=== PATIENT | male | born 1980 | race Caucasian/White ===

== ENCOUNTER → 2019-10-16 12:37 | Outpatient (CLI) | payer BC, SELFPAY ==
--- NOTE | 2019-10-16 | DI.RAD_ITS ---
EXAM: XR THORACIC SPINE COMPLETE CLINICAL HISTORY: CERVICALGIA M54.2UPPER BACK PAIN M54.9. TECHNIQUE: 2D digital imaging was performed. COMPARISON: No exams were available for comparison FINDINGS: BONES: There is no fracture or destructive lesion. The vertebral bodies and posterior elements are un remarkable. DISKS:Alignment is within normal limits. Mild degenerative changes are seen in the thoracic spine johanna racterized by space narrowing and endplate osteophytes. SOFT TISSUE: Visualized lungs are clear. IMPRESSION: Mild degenerative changes in the thoracic spine. DATA REPOSITORY: RADIATION DOSE DELIVERED:
--- NOTE | 2019-10-16 | DI.RAD_ITS ---
EXAM: XR CERVICAL SPINE COMP 4-5V CLINICAL HISTORY: CERVICALGIA M54.2. TECHNIQUE: 2D digital imaging was performed. COMPARISON: No exams were available for comparison FINDINGS: BONES: No fracture or destructive lesion. Vertebral bodies are unremarkable. DISKS: Intervertebral disc spaces are maintained. Mild degenerative changes are seen at C5-6 and C6-C 7. There is mild narrowing of the left neural foramen at C5-C6 and the right neural foramen at C6-C7 . ALIGNMENT: Cervical spinal alignment is within normal limits. The odontoid and atlantoaxial articulat ions are normal. SOFT TISSUE: Normal. The lung apices are clear. IMPRESSION: Mild degenerative changes in the cervical spine. DATA REPOSITORY: RADIATION DOSE DELIVERED:
== END ==
PROVIDERS: Visit Provider Nurse Practitioner
DX: M54.2 Cervicalgia (principal); M50.322 Other cervical disc degeneration at C5-C6 level; M50.323 Other cervical disc degeneration at C6-C7 level; M54.6 Pain in thoracic spine; M47.814 Spondylosis without myelopathy or radiculopathy, thoracic region
CPT/HCPCS: 72050; 72072

== ENCOUNTER 2019-10-26 08:26 | Outpatient (CLI) | payer BC, SELFPAY ==
--- NOTE | 2019-10-26 08:42 | DI.RAD_ITS ---
EXAM: XR KNEE RT 3V AP,LAT,AMY CLINICAL HISTORY: KNEE PAIN RT ACUTE, M25.561. TECHNIQUE: 2D digital imaging was performed. COMPARISON: No exams were available for comparison FINDINGS: BONES: No acute fracture is present. No bony destructive lesion is seen. An exostosis is noted at t he medial aspect of the distal femoral metaphysis. JOINTS: The knee is normally aligned. No joint effusion is seen. Joint spaces are well maintained. SOFT TISSUE: There is prepatellar soft tissue swelling.. IMPRESSION: Prepatellar soft tissue swelling.. DATA REPOSITORY: RADIATION DOSE DELIVERED:
--- NOTE | 2019-10-26 09:07 | DI.RAD_ITS ---
EXAM: XR KNEE LT 3V AP,LAT,AMY CLINICAL HISTORY: ACUTE LT KNEE PAIN, M25.562. TECHNIQUE: 2D digital imaging was performed. COMPARISON: CR XR KNEE RT 3V AP,LAT,AMY from 10/26/2019 FINDINGS: BONES: No acute fracture is present. No bony destructive lesion is seen. JOINTS: The knee is normally aligned. No joint effusion is seen. SOFT TISSUE: Normal. IMPRESSION: Normal radiographs of the left knee. DATA REPOSITORY: RADIATION DOSE DELIVERED:
== END 2019-10-26 08:46 ==
PROVIDERS: PCP Nurse Practitioner; Visit Provider Nurse Practitioner
DX: M25.561 Pain in right knee (principal); M79.89 Other specified soft tissue disorders; M25.562 Pain in left knee
CPT/HCPCS: 73562

== ENCOUNTER 2020-01-26 12:26 | Emergency (ER) | payer BC, SELFPAY ==
[2020-01-26 12:29] VITALS: BP 158/93; PULSE 93; RESP 20; TEMP 36.7; O2SAT 97
--- NOTE | 2020-01-26 13:00 | DI.RAD_ITS ---
EXAM: XR LUMBAR SPINE COMPLETE CLINICAL HISTORY: r > l LOW BACK PAIN TECHNIQUE: COMPARISON: No exams were available for comparison FINDINGS: Five views were obtained. There is marked narrowing of the intervertebral disc space at L5-S1 consis tent with disc degeneration. There is hypertrophic endplate changes also this level. Mild facet DJD L4-5 and L5-S1. No evidence of spondylolysis or spondylolisthesis. No evidence of fracture. IMPRESSION: Mild degenerative changes and evidence of disc degeneration L5-S1. No other significant findings. RADIATION DOSE DELIVERED: Total DLP
--- NOTE | 2020-01-26 13:03 | ED.GENADUL_ITS ---
Discharge Plan Disposition Patient Disposition: HOME Condition: Improving Discharge Details Clinical Impression: Lumbago Primary Care Provider: Florence Christopher ED Provider: Hermilo Stone Home Meds and New Rx's Prescriptions: New prednisone 50 mg tablet 50 mg PO DAILY 5 Days Qty: 5 RF: 0 methocarbamol 500 mg tablet 500 - 1,000 mg PO Q6H PRN (Reason: Back pain or spasm) Qty: 14 RF: 0 Continued citalopram 40 mg tablet 40 mg PO DAILY RF: 0 Discharge Instructions Instructions: Low Back Strain (ED), Acute Low Back Pain (ED) Additional Instructions: Continue small, frequent sips of fluids so that you maintain good hydration today. Take prednisone as prescribed until finished. May use methocarbamol 500 to 1000 mg as needed for pain every 6 hours. May use ibuprofen 800 mg every 8 hours, with food for pain. Once pain has abated, may begin core strengthening exercises as we discussed. I will also refer you to physical therapy which you may use if needed. Stand Alone Forms: Physical Therapy Referral Medical Decision Making 39-year-old male who was bent over carrying wood yesterday when he felt immediate pain in his low back. He now has some pain with radiation down the leg when walking. He has not had any change to bowel or bladder habits. He is afebrile, slightly hypertensive and some mild distress. His exam reveals no motor or sensory dysfunction. Patient given Toradol and prednisone, referred for x-ray which reveals degenerative changes and disc degeneration at L5-S1. Patient improved with medication. I will place him on a burst of prednisone as well as methocarbamol to be used as needed. I will also provide him a referral for physical therapy. [facility] General Mode of arrival: ambulatory . Date/Time Provider Initiated Documentation: 01/26/20 12:27 . Limitations to Documentation: no limitations . Information obtained by: patient . History of Present Illness 39 year old M presents to the emergency department with the chief complaint of Right low back pain since yesterday, described as moderate, Quality is described as dull and constant, and is localized to the back and right. Patient extremity and distal. Patient started experiencing this hour(s) and it has been constant. Rest improves symptom(s), Movement worsens symptoms . Patient notes other (No change to bowel or bladder habits); denies fever/chills and weakness. Patient did receive the following treatments prior to arrival, none Related Data Home Medications Medication Instructions Recorded Confirmed citalopram 40 mg PO DAILY 01/26/20 01/26/20 methocarbamol 500 - 1,000 mg PO Q6H PRN #14 tab 01/26/20 prednisone 50 mg PO DAILY 5 Days #5 tab 01/26/20 Previous Rx's Medication Instructions Recorded methocarbamol 500 - 1,000 mg PO Q6H PRN #14 tab 01/26/20 prednisone 50 mg PO DAILY 5 Days #5 tab 01/26/20 Allergies Allergy/AdvReac Type Severity Reaction Status Date / Time No Known Allergies Allergy Unverified 01/26/20 12:32 General Stated Complaint: Nk/Back Pain HUANG: 3 Review of Systems Narrative: 6 systems reviewed and otherwise negative. No numbness or tingling. No weakness. No change to bowel or bladder habits. Did not fall and there was no traumatic injury. [facility] Surgical History (Updated 07/23/16 @ 10:40 by Pam Burdick) Appendectomy (07/11/16) Social History Smoking/Tobacco Use Status: Former Tobacco Use Alcohol Intake: former Drug use: Occasionally Substance use type: marijuana Do you feel safe at home: Yes Do you feel safe in your relationship?: Yes Exam Narrative Exam Narrative: GEN: awake, alert, oriented 3. Pleasant, well groomed, interactive. HEAD: Normocephalic, atraumatic EYES: PERRL, EOMI NECK: Full ROM, no CYNTHIA, no menigismus CHEST/RESP: Nontender, clear to auscultation bilateral, no wheeze/rhonchi/rales CARDIOVASCULAR: RRR, no murmur, rub arturo. 2+ Rad pulse bilateral Back: No midline tenderness, step-off or deformity. No SI joint tenderness. EXT: Full ROM, no edema, no rash. Pain right low back with resisted straight leg raise. Motor is 5 out of 5 bilaterally. Sensation is intact throughout including saddle distribution. 2+ reflex at the patella bilaterally. Great toe proprioception intact. Neuro: Grossly normal neurologic exam, conversant, interactive. Psych: Speech fluent, thoughts congruent, affect normal Course Vital Signs Vital signs: Vital Signs Temperature 36.7 C 01/26/20 12:29 Pulse 93 H 01/26/20 12:29 Respiratory Rate 20 01/26/20 12:29 Blood Pressure 158/93 H 01/26/20 12:29 Pulse Oximetry 97 01/26/20 12:29 Temperature 36.7 C 01/26/20 12:29 Temperature Source Skin 01/26/20 12:29 Pulse 93 H 01/26/20 12:29 Respiratory Rate 20 01/26/20 12:29 Respiratory Effort Non-Labored 01/26/20 12:48 Blood Pressure 158/93 H 01/26/20 12:29 Blood Pressure Position Sitting 01/26/20 12:29 Pulse Oximetry 97 01/26/20 12:29 Oxygen Delivery Method Room Air 01/26/20 12:29 Oxygen Flow Rate 0 01/26/20 12:29
[2020-01-26] MEDS: predniSONE 20 MG TAB 60 MG PO (13:08)
[2020-01-26] MEDS: Ketorolac 10 MG TAB PO (13:08)
[2020-01-26 14:13] VITALS: BP 117/73; PULSE 68; RESP 18; TEMP 36.6; O2SAT 99
[2020-01-26 14:45] VITALS: BP 117/73; PULSE 68; RESP 18; TEMP 36.6; O2SAT 99
== END 2020-01-26 14:40 | disposition home or self-care (01) ==
PROVIDERS: Emergency Provider Emergency Medicine; PCP Nurse Practitioner
DX: M54.5 Low back pain (principal)
CPT/HCPCS: 99283; 72110; J7512

== ENCOUNTER 2020-09-23 10:13 | Emergency (ER) | payer OTHER, SELFPAY ==
--- OUTSIDE RECORDS SUMMARY | 2020-09-23 10:19 | XMS_ITS ---
:1980 Author Care Team Providers Name Role Phone BELLE WELLS Primary Care Provider [phone] Allergies Code Code System Name Reaction Severity Status Onset NKDA ? Medications Name Status Start Date Stop Date ? ? citalopram 10 mg tablet Completed ? 04/28/20 18 Take 1 tablet every day by oral route. citalopram 20 mg tablet Active ? Not avai lable Take 1.5 tablets every day by oral route. ferrous sulfate 325 mg (65 mg iron) tablet Completed ? 06/06/2018 Take 1 tablet every day by oral route for 90 days. ofloxacin 0.3 % eye drops Completed 06/21/20152015 1 (one) Solution: Q 4 hours Vitamin C 500 mg capsule,extended release Completed ? 06/06/2018 Take 1 capsule every day by oral route for 90 days. Problems Name Status Onset Date Source ? Tobacco User Active 02/04/2018 ? Insomnia Active 02/04/2018 ? Restless Legs Active 02/04/2018 ? Impacted Cerumen Active 02/04/2018 ? Plantar Fasciitis Active 02/04/2018 ? History of Depression Active 02/04/2018 ? Lack of Energy Unknown ? History Corneal Abrasion Unknown ? History Injury of Conjunctiva Unknown ? History Adult Health Examination Unknown ? History Screening for Cardiovascular System Unknown ? History Disease Procedure by Method Unknown ? History Procedures None recorded. Results Lab Results Date Name Specimen Result Interpretation Description Value Range Status Address ? 02/07/2018 CMP, Serum S - g/r 90 mg/dL 74-106 Final [facility] or Plasma mg/dL Hosp[facility] Lab (Internal) : [address] ? ? S - Bun 12 mg/dL 9-20 Final [facility] mg/dL [facility] (Internal) : [address] ? ? S - Crea 0.70 0.66-1.25 Final [place] [facility] mg/dL mg/dL [facility] (Internal) : [address] ? ? S - Ca 9.6 8.4-10.2 [facility] [place] [facility] mg/dL mg/dL [facility] (Internal) : [address] ? ? S - Na 139 137-145 [facility] [place] [facility] mmol/L mmol/L [facility] (Internal) : [address] ? ? S - K 4.4 3.5-5.1 [facility] [place] [facility] mmol/L mmol/L [facility] (Internal) : [address] ? ? S - Cl 104 98-107 [facility] [place] [facility] mmol/L mmol/L [facility] (Internal) : [address] [place] ? ? S - Tco2 29.0 22.0-30.0 [facility] [place] mmol/L mmol/L [facility] L [facility] (Internal) : [address] ? ? S - Tp 7.1 g/dL 6.3-8.2 Final [facility] g/dL Hospital L [facility] (Internal) : [address] [place] ? ? S - Alb 4.4 g/dL 3.5-5.0 [facility] [place] [facility] g/dL [facility] (Internal) : [address] [place] ? ? S - Tbil 0.4 0.2-1.3 Final [place] mg/dL mg/dL Hospital L [facility] (Internal) : [address] [place] ? ? S - Alp 62 U/L 50-136 Final [facility] U/L Hospital L [facility] (Internal) : [address] [place] ? ? S - Alt 35 U/L 21-72 U/L Final [facility] (Sgpt) Hospital L ab (Internal) : [address] ? ? S - Ast 28 U/L 17-59 U/L Final [facility] (Sgot) Hospital L ab (Internal) : [address] [place] 02/07/2018 TSH, Serum S - Tsh 1.38 0.47-4.68 Final [facility] or Plasma u[IU]/mL u[IU]/mL Hos pital Lab (Internal) : [address] 02/07/2018 Ferritin, S - Ferr 63 NG/mL 18-464 [facility] [place] [facility] Serum or NG/mL Hospital Lab Plasma (Internal) : [address] Past Encounters 10/30/2019 Neck Pain; Thoracic Back Pain; Strain of Thoracic Region; Abnormal Posture Laura Giles, PT: [address] [facility], [place] [address], Ph. 09/28/2019 Neck Pain; Thoracic Back Pain; Strain of Thoracic Region; Abnormal Posture Laura Alexanderin, PT: [address] [facility], [facility], [place] [address], Ph. 08/03/2019 Neck Pain; Thoracic Back Pain; Strain of Thoracic Region; Abnormal Posture Laura Alexanderin, PT: [address] [facility], [facility], [place] [address], Ph. Social History Tobacco Smoking Status Former Smoker Notes: 15, 1.5 ppd. quit 2012 Vaccine List None recorded. Plan of Care Reminders Provider Appointments None ? ? recorded. Lab None ? ? recorded. Referral None ? ? recorded. Procedures None ? ? recorded. Surgeries None ? ? recorded. Imaging None ? ? recorded. Vitals 06/06/2018 03:30PM Office 30 Height Weight BMI Blood Pressure 180.34 cm 76.66 kg 23.6 kg/m2 122/68 mm[Hg] 02/07/2018 08:00AM New Patient 45 Height Weight BMI Blood Pressure 180.34 cm 76.07 kg 23.4 kg/m2 124/78 mm[Hg] 04/08/2015 Height Weight Blood Pressure 177.8 cm 79.61 kg 146/86 mm[Hg] 03/08/2015 Height Weight Blood Pressure 177.8 cm 76.2 kg 122/78 mm[Hg]
[2020-09-23 10:22] VITALS: BP 129/79; PULSE 87; RESP 16; TEMP 36.2; O2SAT 96
--- NOTE | 2020-09-23 10:45 | DI.RAD_ITS ---
Exam(s) XR HAND LT COMPLETE EXAM: XR HAND LT COMPLETE CLINICAL HISTORY: screw gun vs middle finger. TECHNIQUE: 2D digital imaging was performed. COMPARISON: No exams were available for comparison FINDINGS: No evidence of fracture or dislocation. No radiopaque foreign body. No osseous lesions. IMPRESSION: No significant radiographic findings. DATA REPOSITORY: RADIATION DOSE DELIVERED:
--- NOTE | 2020-09-23 10:54 | W.ED.GENAD ---
Discharge Plan Disposition Patient Disposition: HOME Condition: Stable Discharge Details Clinical Impression: Wound, open, finger Primary Care Provider: Florence Christopher ED Provider: Aaron Woods Home Meds and New Rx's Prescriptions: Continued citalopram 40 mg tablet 40 mg PO DAILY RF: 0 Discharge Instructions Instructions: Acute Wounds (ED) Additional Instructions: X-ray is unremarkable. Tetanus is up-to-date. There is no need for repairing the wound. Keep the wound clean and dry, change antibiotic dressing daily. Please watch for new or worsening symptoms and return to the ER for any concerns. [id number] Tylenol and/or Motrin as directed for discomfort. Medical Decision Making 40-year-old gentleman presents after sustaining injury to his left middle finger. Neuro, vascular, tendon intact. Tetanus status up-to-date. Wound does not require approximation given the nature of the wound. Will obtain x-ray to rule out potential foreign body and/or bony abnormality. X-ray read by me and reviewed by radiology is unremarkable Wound was thoroughly cleaned and irrigated. Then a nonstick antibiotic dressing applied. Patient has no additional questions or concerns and is comfortable discharge at this time Medical Records Medical records reviewed: Yes I reviewed the patient's medical records. HPI General Mode of arrival: ambulatory. Date/Time Provider Initiated Documentation: 09/23/20 10:38. Limitations to Documentation: no limitations. Information obtained by: patient. HPI Narrative: Patient is a 40-year-old gentleman, [id number], tetanus status is up-to-date. He is presenting to the ER for evaluation of a left middle finger injury that occurred approximately 1 hour ago at work. He states that he slipped, a battery-operated screw gun with a Chris tip struck his left middle finger causing a wound. He reports mild discomfort, feels localized altered sensation but not true numbness. He has full range of motion. He denies any other injury. Denies concern for foreign body. Patient has no additional questions or concerns at this time. Related Data Home Medications Medication Instructions Recorded Confirmed citalopram 40 mg PO DAILY 01/26/20 09/23/20 Allergies Allergy/AdvReac Type Severity Reaction Status Date / Time No Known Allergies Allergy Unverified 09/23/20 10:24 General Stated Complaint: Laceration HUANG: 4 Review of Systems Constitutional Constitutional: Denies fever(s) Musculoskeletal Musculoskeletal: Denies deformity, Denies arthralgias, Denies numbness and Reports tingling Integumentary/Breasts Skin/Breast: Denies erythema Neurologic Neurologic: Denies numbness and Reports tingling [facility] Surgical History Appendectomy (07/11/16) Social History Smoking/Tobacco Use Status: Former Tobacco Use Smoking risk assessment performed?: Yes Alcohol Intake: former Drug use: Occasionally Substance use type: marijuana Do you feel safe at home: Yes Do you feel safe in your relationship?: Yes Exam Const General: cooperative, healthy appearing, comfortable and no acute distress Orientation: alert and awake HENMT Head: normal to inspection, normocephalic and atraumatic Eyes General: appearance normal, both eyes and all related structures Conjunctivae: conjunctivae normal Neck Neck: normal visual inspection, trachea midline and supple Resp Effort & Inspection: normal respiratory effort and able to speak in complete sentences Cardio Rate: regular rate Rhythm: regular rhythm Skin General skin exam: no rashes or lesions noted Neuro General: patient alert, patient awake, moves all extremities and no focal motor deficits Cognition: normal cognition Speech: speech normal Gait: normal gait Motor: muscle tone normal throughout and strength 5/5 throughout Sensory Exam: no sensory deficits noted and normal double simultaneous stimulation Extrem General: full ROM and capillary refill normal Hand/finger images: 1. 1 cm in diameter circular wound to the flexor aspect of the left middle finger between the MCP and PIP joint. There is no active bleeding. 5-5 strength in both flexion and extension. No obvious foreign body swelling, ecchymosis. Neuro, vascular, tendon intact. Normal capillary refill Psych Appearance: grossly normal Mental Status: mental status grossly normal Course Vital Signs Vital signs: Vital Signs Temperature 36.2 C L 09/23/20 10:22 Pulse 87 09/23/20 10:22 Respiratory Rate 16 09/23/20 10:22 Blood Pressure 129/79 09/23/20 10:22 Pulse Oximetry 96 09/23/20 10:22 Temperature 36.2 C L 09/23/20 10:22 Temperature Source Skin 09/23/20 10:22 Pulse 87 09/23/20 10:22 Respiratory Rate 16 09/23/20 10:22 Respiratory Effort Non-Labored 09/23/20 10:25 Blood Pressure 129/79 09/23/20 10:22 Blood Pressure Position Sitting 09/23/20 10:22 Pulse Oximetry 96 09/23/20 10:22 Oxygen Delivery Method Room Air 09/23/20 10:22 Oxygen Flow Rate 0 09/23/20 10:22 Pain Level 1 09/23/20 10:22
== END 2020-09-23 11:32 | disposition home or self-care (01) ==
PROVIDERS: Emergency Provider Physician Assistant; PCP Nurse Practitioner
DX: S61.213A Laceration without foreign body of left middle finger without damage to nail, initial encounter (principal); W29.8XXA Contact with other powered hand tools and household machinery, initial encounter; Y99.0 Civilian activity done for income or pay
CPT/HCPCS: 99283; 73130

== ENCOUNTER 2021-02-26 10:09 | Emergency (ER) | payer OTHER, SELFPAY ==
[2021-02-26 10:15] VITALS: BP 142/90; PULSE 84; TEMP 36.9; O2SAT 98
--- NOTE | 2021-02-26 10:17 | ED.GENADUL_ITS ---
Discharge Plan Disposition Patient Disposition: HOME Condition: Improving Discharge Details Clinical Impression: Trapezius muscle spasm Primary Care Provider: Florence Christopher ED Provider: Hermilo Stone Home Meds and New Rx's Prescriptions: New diazepam [Valium] 5 mg tablet 5 mg PO BID PRN (Reason: muscle spasm) Qty: 7 RF: 0 Continued citalopram 40 mg tablet 40 mg PO DAILY RF: 0 ibuprofen 800 mg Tablet 800 mg PO TID PRNRF: 0 Discharge Instructions Instructions: Spasmodic Torticollis (ED), Muscle Spasm (ED) Additional Instructions: May apply ice to area and alternate with warm, moist heat to improve blood flow. Sling as needed for comfort. Remove Lidoderm patch in 12 hours and then may obtain further patches available [id number]. Continue Tylenol and/or ibuprofen as needed for discomfort. May use the prescribed Valium as needed for persistent pain or spasm. No alcohol or driving with this medication and it may cause mild sedation. Return if you develop a fever, rash, or any other acute concerns. Medical Decision Making 40-year-old male who worked with his hands overhead last Wednesday and is developed achy left constant shoulder pain. He did not fall or injure himself is not had a rash, chest pain, or shortness of breath. His vital signs are unremarkable and exam reveals no reproducible muscular spasm and tenderness of primarily the trapezius muscles. States that he tried methocarbamol and NSAIDs without relief. Declines offer to pursue imaging with x-ray. Will treat with Lidoderm patch, Valium. I offered to prescribe physical therapy which patient declines. HPI General Mode of arrival: ambulatory . Date/Time Provider Initiated Documentation: 02/26/21 10:10 . Limitations to Documentation: no limitations . Information obtained by: patient . History of Present Illness 40 year old M presents to the emergency department with the chief complaint of Shoulder pain after overuse, described as moderate, Quality is described as dull, and is localized to the left and upper extremity. Rest improves symptom(s), Movement worsens symptoms . Patient notes denies rash and weakness. Patient did receive the following treatments prior to arrival, NSAID Related Data Home Medications Medication Instructions Recorded Confirmed citalopram 40 mg PO DAILY 01/26/20 02/26/21 diazepam [Valium] 5 mg PO BID PRN #7 tab 02/26/21 ibuprofen 800 mg PO TID PRN 02/26/21 02/26/21 Previous Rx's Medication Instructions Recorded diazepam [Valium] 5 mg PO BID PRN #7 tab 02/26/21 Allergies Allergy/AdvReac Type Severity Reaction Status Date / Time No Known Allergies Allergy Unverified 02/26/21 10:16 General Stated Complaint: Orthopedic HUANG: 4 Review of Systems Narrative: no fall or injury, otherwise healthy, no recent illness great, no rash. PFSH Surgical History Appendectomy (07/11/16) Social History Smoking/Tobacco Use Status: Former Tobacco Use Smoking risk assessment performed?: Yes Alcohol Intake: former Drug use: Occasionally Substance use type: marijuana Do you feel safe at home: Yes Do you feel safe in your relationship?: Yes Exam Narrative Exam Narrative: GEN: awake, alert, oriented 3. Pleasant, well groomed, interactive. HEAD: Normocephalic, atraumatic ENT: Mucous membranes moist, oropharynx unremarkable, External ear exam unremarkable EYES: PERRL, EOMI NECK: Full ROM, left paraspinous and trapezius muscle tender and with mild spasm CHEST/RESP: Nontender, clear to auscultation bilateral, no wheeze/rhonchi/rales CARDIOVASCULAR: RRR, no murmur, rub arturo. 2+ Rad pulse bilateral ABDOMEN: Soft, nontender, no mass. +Bowel sounds EXT: Full ROM, no edema, no rash, normal sensation, normal motor Neuro: Grossly normal neurologic exam, conversant, interactive. Psych: Speech fluent, thoughts congruent, affect normal Course Vital Signs Vital signs: Vital Signs Temperature 36.9 C 02/26/21 10:15 Pulse 84 02/26/21 10:15 Blood Pressure 142/90 H 02/26/21 10:15 Pulse Oximetry 98 02/26/21 10:15 Temperature 36.9 C 02/26/21 10:15 Temperature Source Temporal Artery Scan 02/26/21 10:15 Pulse 84 02/26/21 10:15 Blood Pressure 142/90 H 02/26/21 10:15 Pulse Oximetry 98 02/26/21 10:15 Oxygen Delivery Method Room Air 10/20/21 10:15 Oxygen Flow Rate 0 02/26/21 10:15 Pain Level 9 02/26/21 10:12
[2021-02-26] MEDS: Lidocaine 5% Patch 1 PATCH TP (10:37)
== END 2021-02-26 10:46 | disposition home or self-care (01) ==
PROVIDERS: Emergency Provider Emergency Medicine; PCP Nurse Practitioner
DX: M62.838 Other muscle spasm (principal); X50.1XXA Overexertion from prolonged static or awkward postures, initial encounter
CPT/HCPCS: 99283

== ENCOUNTER 2021-09-29 10:03 | Outpatient (CLI) | payer OTHER, SELFPAY ==
--- NOTE | 2021-09-29 09:45 | DI.RAD_ITS ---
Exam(s) XR KNEE RT 2V AP,LAT EXAM: XR KNEE RT 2V AP,LAT CLINICAL HISTORY: R knee mass. TECHNIQUE: 2D digital imaging was performed. Two views. COMPARISON: CR XR KNEE RT 3V AP,LAT,AMY from 10/26/2019 FINDINGS: BONES: There is an exostosis at the medial distal femoral metaphysis with appearance consistent with an exostosis. This is unchanged from the prior exam. No acute fracture is present. No bony destruct elie lesion is seen. JOINTS: The knee is normally aligned. No joint effusion is seen. SOFT TISSUE: Normal. IMPRESSION: No change in exostosis of the medial distal femoral metaphysis. DATA REPOSITORY: RADIATION DOSE DELIVERED:
== END 2021-09-29 10:04 | disposition home or self-care (01) ==
LOC: DIORS 10:03
PROVIDERS: PCP Physician Assistant; Referring Provider Physician Assistant; Visit Provider Physician Assistant
DX: R22.41 Localized swelling, mass and lump, right lower limb (principal); M85.851 Other specified disorders of bone density and structure, right thigh
CPT/HCPCS: 73560

== ENCOUNTER 2022-05-20 06:36 | Day surgery (SDC) | payer BC, SELFPAY ==
[2022-05-20] VITALS (8 sets, daily range): BP systolic 118–152; BP diastolic 77–95; PULSE 67–81; RESP 10–16; TEMP 36.2–36.5; O2SAT 95–100; BMI 25.0
--- NOTE | 2022-05-20 06:50 | W.ANESPRE ---
General Info Date of Service Date Performed: 05/20/22 Height: 5 ft 11 in Weight: 81.5 kg Body Mass Index (BMI): 25.0 Surgical Procedure: Operation Date: 05/20/22 07:40 Proposed Procedure Side Surgeon p Femur Osteochondroma Excision Right Jamil Finley MD Meds Allergies and Home Medications Allergies Allergy/AdvReac Type Severity Reaction Status Date / Time Pertussis Vaccines Allergy Unknown Verified 05/20/22 06:30 Home Medication Medication Instructions Recorded ibuprofen 800 mg tablet 800 mg PO TID PRN 02/26/21 citalopram 40 mg tablet 40 mg PO DAILY 09/29/21 Current Visit Medications: Current Medications Generic Name Dose Route Start Last Admin Trade Name Freq PRN Reason Stop Dose Admin Ringer's Solution 1,000 mls @ 80 mls/hr 05/20/22 06:00 IV 05/20/22 23:59 INFUSION ROGERS Cefazolin Sodium/Dextrose 2 gm in 50 mls @ 100 mls/hr 05/20/22 06:00 Ancef Duplex IVPB 05/20/22 23:59 PREOP ROGERS IV Miscellaneous Supplies 1 each 05/20/22 06:00 Iv Access IV 05/20/22 23:59 DIRECTED ROGERS Sodium Chloride 0 ml 05/20/22 06:00 Normal Saline Flush 10 Ml Syr IV 05/20/22 23:59 PRN PRN Sodium Chloride 0 ml 05/20/22 06:00 Normal Saline 10 Ml Vial IJ 05/20/22 23:59 DIRECTED PRN Sterile Water 0 ml 05/20/22 06:00 Water,Injection,Sterile 10 Ml Vial IJ 05/20/22 23:59 DIRECTED PRN PFSH Active Problems Active Problems: Problem Status Onset Code Wound, open, finger S61.209A Trapezius muscle spasm M62.838 Osteochondroma of right femur D16.21 Medical History Medical History History of COVID-19 Surgical History Surgical History Appendectomy (07/11/16) Tobacco Smoking/Tobacco Use Status: Former Tobacco Use Alcohol Alcohol Intake: former Substance Use Substance use: Occasionally Substance use type: marijuana Vital Signs and Lab Results Vital Signs Most Recent Vital Signs in EMR: Most Recent Vital Signs Temp Pulse Resp BP Pulse Ox 36.5 C 81 16 125/77 100 05/20/22 06:31 05/20/22 06:31 05/20/22 06:31 05/20/22 06:31 05/20/22 06:31 Lab Results Blood Type / Crossmatch: No Data to Display Complete Blood Count: No Data to Display Complete Metabolic Panel: No Data to Display Liver Function Panel: No Data to Display Coagulation Panel: No Data to Display Cardiac Panel: No Data to Display Arterial Blood Gas: No Data to Display Venous Blood Gas: No Data to Display Pancreas Panel: No Data to Display Thyroid Panel: No Data to Display Infectious Disease: No Data to Display Blood Cultures: No Data to Display Toxicology Panel: No Data to Display Anesthesia Assessment and Plan Anesthesia History Personal History: No History of Anesthesia Complications Family History: No Family History of Anesthesia Complications Exercise Tolerance Exercise Tolerance: Metabolic Equivalents>4 Pertinent Negatives Pertinent Negatives: No Symptoms of GERD Cardiac & Pulmonary Exam Cardiac Exam: Normal S1/S2 Heart Sounds Pulmonary Exam: Clear Bilateral Breath Sounds Implantable Cardiac Device Does patient have a Pacemaker or an ICD?: No Airway Exam Known Difficult Airway: No Mallampati Class: 3 Mouth Opening: Normal (> 3cm) Thyromental Distance: Greater than 3 cm Neck Range of Motion: Full ROM Neck Circumference: Normal Teeth Condition: Generalized Poor Dentition (Missing lower right ) Tooth Numberin. ASA Classification ASA Score: ASA 2 Emergency Case?: No NPO Status NPO Status: NPO Clears >2 hours, Solids >8 hours Anesthesia Plan Resuscitation Status: Full Code Anesthesia Technique: General Anesthesia Airway Planned: LMA Monitors Used: Standard Monitors
[2022-05-20] MEDS: Lactated Ringers 1,000 ML 80 ML IV (06:56)
--- NOTE | 2022-05-20 07:19 | W.PREOPHP ---
Assessment and Plan Assessment and plan (1) Osteochondroma of right femur: Status: Acute Assessment and plan: Ramez is a 41-year-old has an osteochondroma of his right medial femur. He is here today for excision. I have previously reviewed this with him in the office. Please see that office note for complete detailed history. I reviewed the risk of the procedure to include bleeding, infection, pain, stiffness, recurrence, fracture, need for repeat procedures, damage nerves and vessels. Despite these risk, he elects to proceed. History of Present Illness Narrative: Ramez is a 41-year-old male who has an osteochondroma about the medial aspect of his right femur. He has had this since he was a child and it continues to bother him. With work and with direct pressure he has worsening symptoms. He denies any recent sick contacts. He denies any chest pain or shortness of breath. He is here today for excision of the osteochondroma from the right medial femur. Review of Systems All systems reviewed & are unremarkable except as noted in HPI and below PFSH All Active Problems Wound, open, finger (Acute) Trapezius muscle spasm (Acute) Osteochondroma of right femur (Acute) Medical History History of COVID-19 Surgical History Appendectomy (07/11/16) Social History Smoking/Tobacco Use Status: Former Tobacco Use Quit Date: 05/10/11 Smoking risk assessment performed?: Yes Alcohol Intake: former Drug use: Occasionally Substance use type: marijuana Do you feel safe at home: Yes Do you feel safe in your relationship?: Yes Meds Allergies and Home Medications Allergies Allergy/AdvReac Type Severity Reaction Status Date / Time Pertussis Vaccines Allergy Unknown Verified 05/20/22 06:30 Home Medications Medication Instructions Recorded Confirmed Type citalopram 40 mg tablet 40 mg PO DAILY 09/29/21 05/20/22 History acetaminophen 500 mg tablet 1,000 mg PO TID #90 tabs 05/20/22 Rx hydrocodone 5 mg-acetaminophen 325 1 tab PO Q6H PRN pain #6 tabs 05/20/22 Rx mg tablet ibuprofen 600 mg tablet 600 mg PO TID PRN pain #90 tabs 05/20/22 Rx Exam Const General: cooperative, healthy appearing, comfortable and no acute distress Resp Auscultation: clear to auscultation bilaterally Cardio Rate: regular rate Rhythm: regular rhythm Results Last Vital Signs Temp 36.5 C 05/20/22 06:31 Pulse 81 05/20/22 06:31 Resp 16 05/20/22 06:31 BP 125/77 05/20/22 06:31 Pulse Ox 100 05/20/22 06:31
--- NOTE | 2022-05-20 07:26 | W.PM.DSUDISC ---
Date of service: 05/20/22 Time of Service: 07:38 Discharge Plan Disposition Patient Disposition: Home Condition: Good Discharge Details Reason For Visit: Excision osteochondroma R femur Attending Provider: Jamil Finley Primary Care Provider: Stuart Awad Home Meds and New Rx's Prescriptions: New acetaminophen 500 mg tablet 1,000 mg PO TID Qty: 90 0RF hydrocodone-acetaminophen 5-325 mg tablet 1 tab PO Q6H PRN (Reason: pain) Qty: 6 0RF ibuprofen 600 mg tablet 600 mg PO TID PRN (Reason: pain) Qty: 90 0RF Continued citalopram 40 mg tablet 40 mg PO DAILY Discontinued ibuprofen 800 mg Tablet 800 mg PO TID PRN Discharge Instructions Additional Instructions: Knee Osteochondroma Excision Discharge Instructions Activity: You should begin moving as soon as possible. You may flex and extend your knee as comfort allows. You may bear weight as tolerated, using crutches only for support/comfort. You should apply ice to help with swelling and elevate when possible (especially in the first few days). Dressings: The knee Silas wrap may come down after 48 hours. Mepilex should remain in place until follow-up visit. You may shower after 72 hours and should avoid getting Mepilex wet. You may want to cover Mepilex with Saran wrap to avoid getting it soaked. Medications: - Recommend to take up to 1000mg of Acetaminophen (Tylenol) and 600mg of Ibuprofen (Advil) every 8 hours as needed. These larger strength tablets were called in but you also may use [id number]. - You have been prescribed hydrocodone, a stronger pain medicine to use as needed for increased pain. Follow-up: 10-14 days Referrals: Jamil Finley MD [ [facility] STAFF PHYSICIAN] - Equipment/Supplies: Partial Weight Bearing Crutches Activity:: Activity as Tolerated Shower/Bathe:: 72 hours Diet:: As Tolerated Discharge Orders Discharge Orders: Discharge Order (Routine); Ordered 05/20/22 Ordered By: Jese Martinez DS: Diagnosis Discharge Diagnosis (1) Osteochondroma of right femur: Status: Acute
[2022-05-20] MEDS: ceFAZolin 2 GM/50 ML BAG IVPB (08:07)
[2022-05-20] MEDS: Bupivacaine 0.5% Pres-Free W/EPI 30 ML VIAL (08:32)
--- NOTE | 2022-05-20 09:23 | W.PM.OP ---
Date of service: 05/20/22 Time of Service: 08:45 Operative Note Operative Note DATE OF PROCEDURE: 05/20/22 PRE-OP DIAGNOSIS: Right Distal Femoral Osteochondroma POST-OP DIAGNOSIS: same PROCEDURE: Excision of Osteochondroma - Right Femur SURGEON: Jamil Finley NON DESTRUCTIVE EVALUATION MANAGER: Jese Martinez ANESTHESIA TYPE: General LMA/ETT Refer to Anesthesia Record ESTIMATED BLOOD LOSS: 5 PATHOLOGY: none sent COMPLICATIONS: Other (Brief episode of bronchospams during induction) Patient was transported to: PACU Patient's condition: stable Indications: Ramez is a 41-year-old who has a known osteochondroma of the right medial?distal femur. It has become symptomatic more bothersome over the years. He elected to have it removed. I once again reviewed the technical details of the surgery. I discussed the risk to include bleeding, infection, pain, stiffness, recurrence, damage nerves and vessels, damage to muscle and tendons. Despite these risks, he elected to proceed. Findings: There was a pedunculated osteochondroma of the medial?distal femur. It was resected off of the femur and restoring the normal contour of the distal?medial femur. It had no large cartilage cap no other concerning findings and was thus not sent to pathology. Procedure Description: Ramez was greeted in the preoperative holding area. His identity was confirmed the correct side was identified and marked. The consent was reviewed the patient and signed. History and physical was updated. He was taken to the operating room placed in supine position. All bony problems well-padded. A general anesthetic was then administered. During the induction phase there was notable bronchospasm which required interventions but intubation was otherwise successful and anesthesia proceeded otherwise uneventfully. The right leg was placed into a bone foam ramp and allowed to externally rotate. The right leg was prepped ChloraPrep and draped in a standard fashion. Prophylactic antibiotics in the form of cefazolin were administered. A timeout was performed for safe surgery. The osteochondroma was palpated and marked on the skin. A longitudinal incision was planned directly overlying this over the posterior border of the vastus medialis oblique us. The skin is soft tissues were injected with 0.25% bupivacaine with epinephrine. A longitudinal incision was then made through skin and soft tissue. This was taken down to the fascia of the vastus medialis. Any bleeding was then cauterized. The VMO fascia was then incised. The majority the vastus medialis was elevated anteriorly, elevating off the muscle fibers from the distal and posterior fascial attachments. The proximal border of the osteochondroma was actually penetrating through the muscle and therefore this muscle split was continued down to the base of the osteochondroma. There is no cartilage cap. There is no suspicious findings about the osteochondroma. Periosteum and soft tissue attachments were released from surrounding the osteochondroma. I then used an osteotome to remove the osteochondroma from the medial border of the femur. This was taken in plane with the normal contour of the metaphyseal distal femur. The osteochondroma was resected without problem. I then used a rongeur to remove any extra prominence of bone at its attachment to the distal femur. A rasp was also utilized to smooth this area down. The wound was thoroughly irrigated. The deep tissues and the periosteum were then injected with 0.25% bupivacaine with epinephrine. A small amount of bone wax was placed into the bony bed. Excess was removed. Once again, the wound was thoroughly irrigated. The vastus fascia was then closed with a running 0 Vicryl. The deep tissues were closed with a 2-0 Vicryl and the skin and subcutaneous tissue was closed with a running, 4-0 Monocryl in a subcuticular fashion. This was reinforced with skin glue. Mepilex silver dressing was applied followed by an Silas wrap.
--- NOTE | 2022-05-20 09:40 | W.ANESPOSTOP ---
Postoperative Evaluation Date, Time and Location Date Performed: 05/20/22 Time Performed: 09:40 Patient Location: Day Surgery Unit Vital Signs Most Recent Imported Vital Signs: Most Recent Vital Signs Temp Pulse Resp BP Pulse Ox 36.2 C L 70 10 L 138/94 H 96 05/20/22 09:25 05/20/22 09:25 05/20/22 09:25 05/20/22 09:25 05/20/22 09:25 Pain Score Most Recent Pain Score: Most Recent Pain Score Pain Level 0 05/20/22 09:25 Assessment Mental Status: Awake (Alert & Oriented to Patient Baseline) Airway and Respiratory Function: Patent airway with normal (patient baseline) respiratory exam Cardiovascular Function: Hemodynamically Stable Hydration Status: Adequately Hydrated Nausea & Vomiting: No Nausea or Vomiting Pain: Pt. Denies Any Pain Peripheral Nerve Block: Patient did not receive a nerve block Postoperative Comments:: Discussed intraoperative anesthetic needs as well as probable laryngospasm at beginning of case. Patient verbalizes understanding.
== END 2022-05-20 06:37 | disposition home or self-care (01) ==
PROVIDERS: PCP Physician Assistant; Visit Provider Student in an Organized Health Care Education/Training Program
PROC: (CPT 27355; principal; 2022-05-20 07:30)
DX: D16.21 Benign neoplasm of long bones of right lower limb (principal)
CPT/HCPCS: 27355; J0690; J1100; J1885; J2250; J2405; J2704; J3010

== ENCOUNTER 2023-03-08 13:25 | Outpatient (REF) | payer OTHER, SELFPAY ==
[2023-03-08 15:14] LABS: HCT 45.7 % (40.0-50.0); HGB 15.3 g/dL (13.5-17.5); MCH 29.4 pg (27.0-33.0); MCHC 33.5 % (32.0-36.0); MCV 88 fL (80-95); MPV 10.4 fL (8.0-11.0); Platelet Count 266 10^3/uL (130-400); RBC 5.21 10^6/uL (4.36-5.78); RDW 12.6 % (11.8-14.1); RDW-SD 40.8 fL; WBC 6.43 10^3/uL (4.4-10.8)
[2023-03-08 15:28] LABS: BUN 16 mg/dL (7-18); Calcium 9.7 mg/dL (8.5-10.1); Calculated LDL 173 mg/dL (<100); Chloride 105 mmol/L (98-107); Cholesterol 244 mg/dL (<200); Estimated GFR 95.18 (mL/min/1.73m2); Glucose 103 mg/dL (74-106); HDL Cholesterol 47 mg/dL (40-60); Potassium 4.4 mmol/L (3.5-5.1); Sodium 141 mmol/L (136-145); Triglyceride 122 mg/dL (<150)
== END 2023-03-08 13:26 | disposition home or self-care (01) ==
LOC: NCHCN 13:25
PROVIDERS: PCP Physician Assistant; Visit Provider Physician Assistant
DX: Z00.00 Encounter for general adult medical examination without abnormal findings (principal)
CPT/HCPCS: 80048; 80061; 85027

== ENCOUNTER 2023-03-23 17:30 | Emergency (ER) | payer OTHER, SELFPAY ==
[2023-03-23 17:34] VITALS: BP 154/90; PULSE 88; RESP 18; TEMP 37.2; O2SAT 98
--- NOTE | 2023-03-23 17:48 | W.ED.GENAD ---
Discharge Plan Disposition Patient Disposition: Home Condition: Stable Discharge Details Clinical Impression: Acute left otitis media Primary Care Provider: Stuart Awad ED Provider: Magy Roberts Home Meds and New Rx's Prescriptions: New amoxicillin-pot clavulanate 875-125 mg tablet 1 tab PO BID 7 Days Qty: 14 0RF No Action citalopram 40 mg tablet 40 mg PO DAILY acetaminophen 500 mg tablet 1,000 mg PO TID Qty: 90 0RF ibuprofen 600 mg tablet 600 mg PO TID PRN (Reason: pain) Qty: 90 0RF Discharge Instructions Instructions: Ear Infection (ED) Additional Instructions: Take the antibiotic as directed with yogurt or a probiotic. Please take Tylenol or Ibuprofen with food every 4-6 hours as needed for pain and swelling. Do not put anything into your ear. No swimming. Follow up with primary care provider in 3-5 days. Return to ED sooner if any worsening or concerns. Increase oral fluids. Referrals: Stuart Awad [Primary Care Provider] - 5 days Discharge Data Discharge Date/Time-TO BE ENTERED AT DEPARTURE: 03/23/23 17:59 Medical Decision Making 42-year-old male presents with chief complaint of left ear pain which began yesterday. He has been taking Tylenol with little to no relief. Denies any fever chills or any other associated symptoms. On exam he is alert and oriented x4 speaking in full sentences. He does have erythemic left tympanic membrane loss of landmarks. Right tympanic membrane is occluded by cerumen. Will give Augmentin here in the ER given 2 tablets to go. This text was generated using [employer] dictation system, please disregard any oddities of phrase or misspellings. HPI General Mode of arrival: ambulatory. Date/Time Provider Initiated Documentation: 03/23/23 17:47. Limitations to Documentation: no limitations. Information obtained by: patient, RN notes reviewed and old records reviewed. HPI Narrative: 42-year-old male presents with chief complaint of left ear pain which began yesterday. He has been taking Tylenol with little to no relief. Denies any fever chills or any other associated symptoms. On exam he is alert and oriented x4 speaking in full sentences. He does have erythemic left tympanic membrane loss of landmarks. Right tympanic membrane is occluded by cerumen. Related Data Home Medications Medication Instructions Recorded Confirmed citalopram 40 mg tablet 40 mg PO DAILY 09/29/21 03/23/23 acetaminophen 500 mg tablet 1,000 mg (2 x 500 mg) PO TID #90 05/20/22 03/23/23 tabs ibuprofen 600 mg tablet 600 mg PO TID PRN pain #90 tabs 05/20/22 03/23/23 amoxicillin 875 mg-potassium 1 tab PO BID 7 days #14 tabs 03/23/23 clavulanate 125 mg tablet Previous Rx's Medication Instructions Recorded acetaminophen 500 mg tablet 1,000 mg (2 x 500 mg) PO TID #90 05/20/22 tabs ibuprofen 600 mg tablet 600 mg PO TID PRN pain #90 tabs 05/20/22 amoxicillin 875 mg-potassium 1 tab PO BID 7 days #14 tabs 03/23/23 clavulanate 125 mg tablet Allergies Allergy/AdvReac Type Severity Reaction Status Date / Time Pertussis Vaccines Allergy Unknown Verified 03/23/23 17:37 General Stated Complaint: EarProblem HUANG: 4 Review of Systems ENT Ears, Nose, Mouth, and Throat: Reports as per HPI and Reports otalgia PFSH All Active Problems Acute left otitis media (Acute) Wound, open, finger (Acute) Trapezius muscle spasm (Acute) Osteochondroma of right femur (Acute) S/P Excision: 05/20/2022 Medical History History of COVID-19 Surgical History Appendectomy (07/11/16) Social History Smoking/Tobacco Use Status: Former Tobacco Use Quit Date: 05/10/11 Smoking risk assessment performed?: Yes Alcohol Intake: former Drug use: Occasionally Substance use type: marijuana Do you feel safe at home: Yes Do you feel safe in your relationship?: Yes Exam HENMT Ears: TM abnormal erythematous on the left, with loss of landmarks on the right and on the left and obstructed by cerumen on the right Course Vital Signs Vital signs: Vital Signs Temperature 37.2 C 03/23/23 17:34 Pulse 88 03/23/23 17:34 Respiratory Rate 18 03/23/23 17:34 Blood Pressure 154/90 H 03/23/23 17:34 Pulse Oximetry 98 03/23/23 17:34 Temperature 37.2 C 03/23/23 17:34 Temperature Source Skin 03/23/23 17:34 Pulse 88 03/23/23 17:34 Respiratory Rate 18 03/23/23 17:34 Blood Pressure 154/90 H 03/23/23 17:34 Blood Pressure Position Sitting 03/23/23 17:34 Pulse Oximetry 98 03/23/23 17:34 Oxygen Delivery Method Room Air 03/23/23 17:34 Oxygen Flow Rate 0 03/23/23 17:34 Pain Level 7 03/23/23 17:38
[2023-03-23] MEDS: Amoxicillin 875/Clav. 125 TAB PO (17:53)
[2023-03-23] MEDS: Amox. 875/Clav. 125, 2 TABS/BTL 1 TAB PO (17:53)
== END 2023-03-23 17:59 | disposition home or self-care (01) ==
PROVIDERS: Emergency Provider Registered Nurse Emergency; PCP Physician Assistant
DX: H66.92 Otitis media, unspecified, left ear (principal); Z87.891 Personal history of nicotine dependence
CPT/HCPCS: 99283; 99282

== ENCOUNTER 2024-05-15 16:24 | Outpatient (REF) | payer BC, SELFPAY ==
[2024-05-15 16:45] LABS: Calculated LDL 171 mg/dL (<100); Cholesterol 265 mg/dL (<200); HDL Cholesterol 39 mg/dL (40-60); Triglyceride 278 mg/dL (<150)
== END 2024-05-15 16:25 | disposition home or self-care (01) ==
LOC: NCHCN 16:24
PROVIDERS: PCP Physician Assistant; Visit Provider Physician Assistant
DX: E78.5 Hyperlipidemia, unspecified (principal)
CPT/HCPCS: 80061

== ENCOUNTER 2024-06-02 08:14 | Day surgery (SDC) | payer BC, SELFPAY ==
--- NOTE | 2024-06-01 14:25 | COLE_ITS ---
Date of service: 06/02/24 Time of Service: 10:31 Colonoscopy Report Date of procedure: 06/02/24 Pre-op diagnosis general: CRC screening Post-op diagnosis procedure note: other ( nternal and external hemorrhoids and polyps) Surgeon: Atiya George Anesthesia Type: General:No Airway Estimated blood loss (mL): 1 Pathology: other Complications: None Disposition: same day Prep: Miralax/Dulcolax Retraction Time: 21 Procedure Description: After informed consent was obtained, explaining risks of the procedure, including but not limits to: bleeding, infections, complications of anesthesia, perforations (which may require antibiotics and /or surgery and stay in the hospital), and abdominal pain/cramping. The patient was taken to the procedure room and placed in a left decubitous position. Monitors were applied and a time out was done. The patients name, date of , procedure, allergies to medications and metal in their body was reviewed. The patient was then sedated. Once sedated and comfortable a rectal exam was done. External exam shows external hemorrhoids with no thrombosis or acute inflammation. Internal exam revealed a normal sphincter tone and no palpable masses. The prostate . The previously lubricated Olympus scope was then introduced (see RN notes for scope number) and retrofelexed. Grade 2 x 2 column internal hemorrhoids were identified. The scope was then advanced to the cecum without difficulty. The TI and appendiceal orifice were identified. The scope was then slowly retracted over 21 minutes back into the rectum. Polyps: A flat, .5cm polyp was found at 90cm. This was removed with a cold biting forceps. A pedunculated, 1cm polyp was found at 40 cm. This is removed with a cold snare. All of the specimen was retrieved. This will be sent to pathology. There is no bleeding noted from the polypectomy site. Diverticula: None. The mucosa is pink and healthy w/ a normal vascular pattern. The scope was removed, and the patient was woken up and taken back to Same day surgery in stable condition. The patient tolerated the procedure well and there were no immediate complications. Follow up: The patient should follow up in ~5 years, unless they develop changes in bowel habits or other new gastrointestinal complaints. [place] Bowel Prep [place] Bowel Prep Right Colon: 2 Left Colon: 3 Transverse Colon: 3 Total Score: 8
--- NOTE | 2024-06-01 14:26 | PDOC.DSDIS_ITS ---
Date of service: 06/02/24 Discharge Plan Disposition Patient Disposition: Home Condition: Good Discharge Details Reason For Visit: colon cancer screening Attending Provider: Atiya George Primary Care Provider: Stuart Awad Home Meds and New Rx's Prescriptions: Continued citalopram 40 mg tablet 40 mg PO DAILY acetaminophen 500 mg tablet 1,000 mg PO TID Qty: 90 0RF ibuprofen 600 mg tablet 600 mg PO TID PRN (Reason: pain) Qty: 90 0RF Discontinued bisacodyl [Dulcolax (bisacodyl)] 5 mg tablet,delayed release (DR/EC) 5 mg PO ONCE Qty: 4 0RF Rx Instructions: Take per colonoscopy instructions provided by ordering providers office polyethylene glycol 3350 17 gram/dose powder 17 g PO ONCE Qty: 238 0RF Rx Instructions: Take per colonoscopy instructions provided by ordering providers office Discharge Instructions Additional Instructions: [facility] Colonoscopy Post- Op Instructions Instructions for Everyone who is given Anesthesia: For your safety, please do the following for the next twenty-four (24) hours: *Do Not operate a motor vehicle (car, truck, motorcycle, etc.) *Do Not drink alcoholic beverages or use any recreational drugs for the first 24 hours or while taking pain medications. The medications in your body may have a reaction that can be dangerous. *Do Not make any important decisions or sign any important papers. Findings: external and Internal hemorrhoids- make sure you are moving your bowels on a regular basis and not straining. If you have problems w/ constipation- than it is recommended you start a fiber supplement daily, such as Metamucil. Follow up: adenomatous polyps- my office will send you a letter in 3-4 wks time w/ the results of the pathology and when we want to repeat the colonoscopy, probably around 5 yrs time. 1. No lifting over 20 pounds or strenuous activity for the first 24 hours after your procedure. After 24 hours there are no restrictions on your activity but you may feel fatigued for a few days. 2. After you arrive home you may have a light meal and return to your normal diet as you can tolerate it without feeling sick to your stomach. 3. You may have a bloated, gaseous feeling in your belly (abdomen) after a colonoscopy. Passing gas and belching will help. Walking or lying down on your left side with your knees flexed may relieve the discomfort. 4. please do not smoke for the next 24hrs Call the office at [phone] (Office) or [phone] (Hospital) right away if you notice any of the following: a.Vomiting of blood or ?coffee ground stools?. b.Rectal bleeding 1Tbsp, blood clots or continuous bleeding. c.Severe belly (abdominal) pain. d.A hard distended belly (abdomen) and an inability to pass gas. 4. Please don?t expect to have a normal BM (bowel movement) for 2-3 days after your procedure. 5. If there are questions regarding the findings of your procedure, please contact your doctor 6. If you are unable to contact your doctor with a problem, contact the hospital at [phone]. 7. Continue all your regular medications unless directed otherwise. I understand the above instructions and have no questions. Signature of Patient or Adult Escort Name of Responsible Adult Escort Signature of Nurse Date/Time Stand Alone Forms: Anesthesia Discharge Inst., Marco A Andrade ([facility]) Activity:: see above Diet:: see above Discharge Orders Discharge Orders: Discharge Order (Routine); Ordered 06/02/24 Ordered By: Atiya George DS: Diagnosis Discharge Diagnosis (1) Screening for malignant neoplasm of colon performed: Status: Acute Asessment and Plan: The patient is seen and examined after their colonoscopy.? The patient has been able to pass gas.? They are not having abdominal pain.? They have been able to tolerate liquids and a snack.? They do not have any nausea or vomiting.? They are not having any chest pain or shortness of breath.??? They are not having any rectal bleeding. Their vital signs have been stable-see nursing notes. We discussed findings during their colonoscopy, and any biopsies that were done/polyps that were removed. The patient will be sent a letter with any biopsy results, and when to repeat the colonoscopy.-see discharge instructions. Patient was given explicit instructions to follow-up regarding colonoscopy-refer to discharge instructions.? We reviewed resumption of medications. Patient verbalized understanding and discharged in stable and satisfactory cond ition- See nursing notes.s (2) Internal and external hemorrhoids without complication: Status: Acute (3) Adenomatous polyps: Status: Acute Asessment and Plan: The patient is seen and examined after their colonoscopy.? The patient has been able to pass gas.? They are not having abdominal pain.? They have been able to tolerate liquids and a snack.? They do not have any nausea or vomiting.? They are not having any chest pain or shortness of breath.??? They are not having any rectal bleeding. Their vital signs have been stable-see nursing notes. We discussed findings during their colonoscopy, and any biopsies that were done/polyps that were removed. The patient will be sent a letter with any biopsy results, and when to repeat the colonoscopy.-see discharge instructions. Patient was given explicit instructions to follow-up regarding colonoscopy-refer to discharge instructions.? We reviewed resumption of medications. Patient verbalized understanding and discharged in stable and satisfactory condition- See nursing notes.
[2024-06-02 08:18] VITALS: BP 128/78; PULSE 81; RESP 18; TEMP 36.8; O2SAT 96
[2024-06-02] MEDS: Lactated Ringers 1,000 ML 80 ML IV (08:47)
--- NOTE | 2024-06-02 09:20 | W.ANESPRE ---
General Info Date of Service Date Performed: 06/02/24 Height: 5 ft 11 in Weight: 83.3 kg Body Mass Index (BMI): 25.6 Surgical Procedure: Operation Date: 06/02/24 09:05 Proposed Procedure Side Surgeon lorena George, Meds Allergies and Home Medications Allergies Allergy/AdvReac Type Severity Reaction Status Date / Time Pertussis Vaccines Allergy Unknown Other (See Verified 06/01/24 12:37 Comment) Home Medication ?Medication ?Instructions ?Recorded citalopram 40 mg tablet 40 mg PO DAILY 09/29/21 acetaminophen 500 mg tablet 1,000 mg (2 x 500 mg) PO TID #90 05/20/22 tabs ibuprofen 600 mg tablet 600 mg PO TID PRN pain #90 tabs 05/20/22 Current Visit Medications: Current Medications Generic Name Dose Route Start Last Admin Trade Name Freq PRN Reason Stop Dose Admin Hyoscyamine Sulfate 0.125 mg 06/02/24 02:07 Hyoscyamine 0.125 Mg Sl/Oral/Chew SL 07/02/24 02:06 DIRECTED PRN Ringer's Solution 1,000 mls @ 80 mls/hr 06/02/24 06:00 06/02/24 08:47 IV 06/02/24 23:59 80 mls/hr INFUSION ROGERS Administration IV Miscellaneous Supplies 1 each 06/02/24 06:00 Iv Access IV 06/02/24 23:59 DIRECTED ROGERS Ondansetron HCl 4 mg 06/02/24 02:07 Ondansetron 4 Mg/2 Ml Vial IVP 07/02/24 02:06 Q4H PRN PRN Nausea / Vomiting Sodium Chloride 0 ml 06/02/24 06:00 Normal Saline Flush 10 Ml Syr IV 06/02/24 23:59 PRN PRN Sodium Chloride 0 ml 06/02/24 06:00 Normal Saline 10 Ml Vial IJ 06/02/24 23:59 DIRECTED PRN Sterile Water 0 ml 06/02/24 06:00 Water,Injection,Sterile 10 Ml Vial IJ 06/02/24 23:59 DIRECTED PRN PFSH Active Problems Active Problems: Problem Status Onset Code Screening for malignant neoplasm of colon performed Acute Z12.11 Wound, open, finger Acute S61.209A Trapezius muscle spasm Acute M62.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 Vital Signs and Lab Results Vital Signs Most Recent Vital Signs in EMR: Most Recent Vital Signs Temp Pulse Resp BP Pulse Ox 36.8 C 81 18 128/78 96 06/02/24 08:18 06/02/24 08:18 06/02/24 08:18 06/02/24 08:18 06/02/24 08:18 Lab Results Blood Type / Crossmatch: No Data to Display Complete Blood Count: No Data to Display Complete Metabolic Panel: No Data to Display Liver Function Panel: No Data to Display Coagulation Panel: No Data to Display Cardiac Panel: No Data to Display Arterial Blood Gas: No Data to Display Venous Blood Gas: No Data to Display Pancreas Panel: No Data to Display Thyroid Panel: No Data to Display Infectious Disease: No Data to Display Blood Cultures: No Data to Display Toxicology Panel: No Data to Display Anesthesia Assessment and Plan Anesthesia History Personal History: No History of Anesthesia Complications Family History: No Family History of Anesthesia Complications Exercise Tolerance Exercise Tolerance: Metabolic Equivalents>4 Pertinent Negatives Pertinent Negatives: No Symptoms of GERD, No Major Cardiovascular Symptoms or Complaints, No Major Pulmonary Symptoms or Complaints and No History of CVA/TIA Cardiac & Pulmonary Exam Cardiac Exam: Normal S1/S2 Heart Sounds Pulmonary Exam: Clear Bilateral Breath Sounds Implantable Cardiac Device Does patient have a Pacemaker or an ICD?: No Airway Exam Known Difficult Airway: No Mallampati Class: 3 Mouth Opening: Normal (> 3cm) Thyromental Distance: Greater than 3 cm Neck Range of Motion: Full ROM Neck Circumference: Normal Teeth Condition: Generalized Poor Dentition (Missing lower right ) ASA Classification ASA Score: ASA 2 Emergency Case?: No NPO Status NPO Status: NPO Clears >2 hours, Solids >8 hours Anesthesia Plan Resuscitation Status: Full Code Anesthesia Technique: General Anesthesia Airway Planned: LMA Monitors Used: Standard Monitors
[2024-06-02 09:21] VITALS: BMI 25.6
--- NOTE | 2024-06-02 10:01 | BOWEL_PTH ---
PATIENT: Ramez Fontenot LOC: [facility] U#:[id number] AGE/SX: 43/M ROOM: RE06/02/[address]: Atiya George : 1980 BED: DIS: 06/02/2024 SPEC #: [id number] RECD: 06/02/24 12:53 STATUS: GRISEL REQ #: [id number] ALEJANDRA: 06/02/24 10:[address]: Atiya George DEPT: Surgical Specimen RECD BY: Heather Liz ENTERED: 06/02/24 12:53 SP TYPE: Bowel OTHR DR: Stuart Awad Tissues: 1 - BIOPSY BOWEL 2 - BIOPSY BOWEL Procedures: GROSS AND MICRO LEVEL 4 Comments: [id number]
[2024-06-02 10:37] VITALS: BP 134/92; PULSE 78; RESP 16; TEMP 36.2; O2SAT 93
--- NOTE | 2024-06-02 10:52 | W.ANESPOSTOP ---
Postoperative Evaluation Date, Time and Location Date Performed: 06/02/24 Time Performed: 10:52 Patient Location: Day [facility] Unit Vital Signs Most Recent Imported Vital Signs: Most Recent Vital Signs Temp Pulse Resp BP Pulse Ox 36.2 C L 78 16 134/92 H 93 06/02/24 10:37 06/02/24 10:37 06/02/24 10:37 06/02/24 10:37 06/02/24 10:37 Pain Score Most Recent Pain Score: Most Recent Pain Score Pain Level 0 06/02/24 10:37 Assessment Mental Status: Awake (Alert & Oriented to Patient Baseline) Airway and Respiratory Function: Patent airway with normal (patient baseline) respiratory exam Cardiovascular Function: Hemodynamically Stable Hydration Status: Adequately Hydrated Nausea & Vomiting: No Nausea or Vomiting Pain: Pt. Denies Any Pain Peripheral Nerve Block: Patient did not receive a nerve block Postoperative Comments:: Very reactive airway during procedure.
[2024-06-02 11:12] VITALS: BP 134/86; PULSE 60; RESP 20; TEMP 36.3; O2SAT 92
[2024-06-02] MEDS: Albuterol 2.5 MG/3 ML INH SOLN VIAL UPD (11:15)
--- NOTE | 2024-06-02 12:12 | PDOC.DSDIS_ITS ---
Date of service: 06/02/24 Discharge Plan Disposition Patient Disposition: Home Condition: Good Discharge Details Reason For Visit: colon cancer screening Attending Provider: Atiya George Primary Care Provider: Stuart Awad Home Meds and New Rx's Prescriptions: New albuterol sulfate 90 mcg/actuation HFA aerosol inhaler 2 inh inhalation Q6H PRNQty: 6.7 2RF prednisone 5 mg tablet 5 mg PO TID 3 Days Qty: 9 0RF prednisone 5 mg tablet 5 mg PO BID 3 Days Qty: 6 0RF Rx Instructions: Rx #2 prednisone 5 mg tablet 5 mg PO DAILY 3 Days Qty: 3 0RF Rx Instructions: Rx#3 prednisone 2.5 mg tablet 2.5 mg PO DAILY 3 Days Qty: 3 0RF Rx Instructions: Rx #4 than no further meds required Continued citalopram 40 mg tablet 40 mg PO DAILY acetaminophen 500 mg tablet 1,000 mg PO TID Qty: 90 0RF ibuprofen 600 mg tablet 600 mg PO TID PRN (Reason: pain) Qty: 90 0RF Discontinued bisacodyl [Dulcolax (bisacodyl)] 5 mg tablet,delayed release (DR/EC) 5 mg PO ONCE Qty: 4 0RF Rx Instructions: Take per colonoscopy instructions provided by ordering providers office polyethylene glycol 3350 17 gram/dose powder 17 g PO ONCE Qty: 238 0RF Rx Instructions: Take per colonoscopy instructions provided by ordering providers office Discharge Instructions Additional Instructions: [facility] Colonoscopy Post- Op Instructions Instructions for Everyone who is given Anesthesia: For your safety, please do the following for the next twenty-four (24) hours: *Do Not operate a motor vehicle (car, truck, motorcycle, etc.) *Do Not drink alcoholic beverages or use any recreational drugs for the first 24 hours or while taking pain medications. The medications in your body may have a reaction that can be dangerous. *Do Not make any important decisions or sign any important papers. Findings: external and Internal hemorrhoids- make sure you are moving your bowels on a regular basis and not straining. If you have problems w/ constipation- than it is recommended you start a fiber supplement daily, such as Metamucil. Follow up: adenomatous polyps- my office will send you a letter in 3-4 wks time w/ the results of the pathology and when we want to repeat the colonoscopy, probably around 5 yrs time. 1. No lifting over 20 pounds or strenuous activity for the first 24 hours after your procedure. After 24 hours there are no restrictions on your activity but you may feel fatigued for a few days. 2. After you arrive home you may have a light meal and return to your normal diet as you can tolerate it without feeling sick to your stomach. 3. You may have a bloated, gaseous feeling in your belly (abdomen) after a colonoscopy. Passing gas and belching will help. Walking or lying down on your left side with your knees flexed may relieve the discomfort. 4. Please do not smoke for the next 24hrs 5. Gargle with salt water 4-5 times a day for any sore throat. 6. Albuterol inhaler 4 times a day while awake for the next 72hrs 7. Tapering dose of steroids for 10 days Call the office at [phone] (Office) or [phone] (Hospital) right away if you notice any of the following: a.Vomiting of blood or ?coffee ground stools?. b.Rectal bleeding 1Tbsp, blood clots or continuous bleeding. c.Severe belly (abdominal) pain. d.A hard distended belly (abdomen) and an inability to pass gas. 4. Please don?t expect to have a normal BM (bowel movement) for 2-3 days after your procedure. 5. If there are questions regarding the findings of your procedure, please contact your doctor 6. If you are unable to contact your doctor with a problem, contact the hospital at [phone]. 7. Continue all your regular medications unless directed otherwise. I understand the above instructions and have no questions. Signature of Patient or Adult Escort Name of Responsible Adult Escort Signature of Nurse Date/Time Stand Alone Forms: Anesthesia Discharge Inst., Marco A Andrade ([facility]) Activity:: see above Diet:: see above Discharge Orders Discharge Orders: Discharge Order (Routine); Ordered 06/02/24 Ordered By: Atiya George DS: Diagnosis Discharge Diagnosis (1) Screening for malignant neoplasm of colon performed: Status: Acute (2) Internal and external hemorrhoids without complication: Status: Acute (3) Adenomatous polyps: Status: Acute
== END 2024-06-02 12:55 | disposition home or self-care (01) ==
LOC: SUR 08:14
PROVIDERS: PCP Physician Assistant; Visit Provider Surgery
PROC: 0DJD8ZZ Inspection of Lower Intestinal Tract, Via Natural or Artificial Opening Endoscopic (ICD-10-PCS; CPT 45378; principal; 2024-06-02 09:00)
DX: Z12.11 Encounter for screening for malignant neoplasm of colon (principal); K64.4 Residual hemorrhoidal skin tags; K64.8 Other hemorrhoids; D12.5 Benign neoplasm of sigmoid colon; K63.89 Other specified diseases of intestine
CPT/HCPCS: 45385; 45380; 88305; J2704; J7613

== ENCOUNTER 2024-11-07 21:13 | Outpatient (REF) | payer BC, SELFPAY ==
[2024-11-07 18:30] LABS: HCT 40.6 % (40.0-50.0); HGB 14.0 g/dL (13.5-17.5); MCH 30.4 pg (27.0-33.0); MCHC 34.5 % (32.0-36.0); MCV 88 fL (80-95); MPV 10.6 fL (8.0-11.0); Platelet Count 258 10^3/uL (130-400); RBC 4.61 10^6/uL (4.36-5.78); RDW 12.9 % (11.8-14.1); RDW-SD 41.5 fL; WBC 8.65 10^3/uL (4.4-10.8)
[2024-11-07 18:50] LABS: Ferritin 73 ng/mL (26-388)
[2024-11-07 19:10] LABS: Iron 146 ug/dL (65-175); Total Iron Binding Capacity 306 ug/dL (250-450); Transferrin Sat 48 % (20-55)
== END 2024-11-07 21:14 | disposition home or self-care (01) ==
LOC: NCHCN 21:13
PROVIDERS: PCP Physician Assistant; Visit Provider Physician Assistant
DX: G25.81 Restless legs syndrome (principal)
CPT/HCPCS: 85027; 82728; 83540; 83550